=== PATIENT | male | born 1940 | race African-American/Black ===

== ENCOUNTER 2018-06-27 11:22 | Emergency (ER) | payer OTHER ==
[~2018-06-27] VITALS: Ht 172.7 cm; Wt 109.3 kg
[2018-06-27 11:26] VITALS: Ht 172.7 cm; Wt 109.3 kg
[2018-06-27 12:11] LABS: PLATELET COUNT 142 x10^3mcL (130-400)
[2018-06-27 12:12] LABS: CALCIUM 8.8 mg/dL (8.5-10.1); CARBON DIOXIDE 22.6 mmol/L (21-32); CHLORIDE SERUM 107 mmol/L (98-107); CREATININE SERUM 1.7 mg/dL (0.7-1.3); GLUCOSE SERUM 103 mg/dL (74-106); POTASSIUM SERUM 4.1 mmol/L (3.5-5.1); SODIUM SERUM 139 mmol/L (136-145)
[2018-06-27 12:16] LABS: ALBUMIN 3.9 g/dL (3.4-5.0); ALKALINE PHOSPHATASE 73 U/L (46-116); ALT/SGPT 17 U/L (16-63); AST/SGOT 12 U/L (15-37); BILIRUBIN TOTAL 0.3 mg/dL (0.20-1.00); LIPASE 307 IU/L (73-393)
[2018-06-27 12:17] LABS: TOTAL PROTEIN, SERUM 8.3 g/dL (6.4-8.2)
[2018-06-27 12:36] LABS: BASOPHIL % 0.3 % (0-2)
[2018-06-27 12:39] LABS: RED CELL DISTRIBUTION WIDTH 15.4 % (11.5-14.5)
[2018-06-27 13:28] VITALS: BP 126/65
== END 2018-06-27 13:28 | disposition home or self-care (01) ==
LOC: ED 11:22
PROVIDERS: Emergency Medicine
DX: K52.9 Noninfective gastroenteritis and colitis, unspecified (principal); E86.0 Dehydration; I10 Essential (primary) hypertension; E11.9 Type 2 diabetes mellitus without complications; E78.00 Pure hypercholesterolemia, unspecified
CPT/HCPCS: 87046; 87046-59; J7030